=== PATIENT | female | born 2000 | race Caucasian/White ===

== ENCOUNTER 2019-07-28 03:04 | Emergency (ER) | payer OTHER ==
[2019-07-28] MEDS ORDERED: Erythromycin OPTH OINT* APPLIC OINT RIGHT EYE SCH (04:00)
--- NOTE | 2019-07-28 04:01 | ED ---
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 She notes that the swelling is pruritic, painful, and that her right eye is erythemous. She rates her pain severity a 6/ 10. No aggravating or alleviating factors noted. - History of Current Complaint Chief Complaint: EDEyeProblem Hx Obtained From: Patient Onset/Duration: Sudden Onset, Lasting Days, Lasting Weeks, Still Present Severity: Moderate - Allergies/Home Medications Allergies/Adverse Reactions: Allergies Allergy/AdvReac Type Severity Reaction Status Date / Time No Known Allergies Allergy Verified 07/28/19 03:08 Home Medications: Home Medications NK [No Home Medications Reported] 07/28/19 [History Confirmed 07/28/19] PMH/Surg Hx/FS Hx/Imm Hx Sensory History: Denies: Hx Legally Blind, Hx Deafness Opthamlomology History: Denies: Hx Legally Blind EENT History: Denies: Hx Deafness - Surgical History Surgical History: None Surgery Procedure, Year, and Place: none Infectious Disease History: No Infectious Disease History: Reports: Traveled Outside the [place] in Last 30 Days - Family History Known Family History: Negative: Renal Disease - Social History Alcohol Use: None Substance Use Type: Reports: None Hx Tobacco Use: No Smoking Status (MU): Never Smoked Tobacco Review of Systems Negative: Fever Eyes: Other - pos - swelling under right eye, erythemous right eye, right eye pain All Other Systems Reviewed And Are Negative: Yes Physical Exam - Summary Physical Exam Summary: Appearance: Well-appearing, Well-nourished, lying in bed comfortably Skin: Warm, dry, no obvious rash Eyes: sclera anicteric, no conjunctival pallor, hordeolum on lower lid of right eye, no definite abscess ENT: mucous membranes moist, pharynx appears normal Neck: Supple, nontender Respiratory: Clear to auscultation, no signs of respiratory distress Cardiovascular: Normal S1, S2. No murmurs. Normal distal pulses in tibial and radial bilaterally. Abdomen: Soft, nontender, normal active bowel sounds present Musculoskeletal: Normal, Strength/ROM Intact Neurological: A&Ox3, awake and alert, mentation is normal, speech is fluent and appropriate Psychiatric: affect is normal, does not appear anxious or depressed Triage Information Reviewed: Yes Vital Signs On Initial Exam: Initial Vitals Temp Pulse Resp BP Pulse Ox 98.6 F 55 16 103/62 98 07/28/19 03:05 07/28/19 03:05 07/28/19 03:05 07/28/19 03:05 07/28/19 03:05 Vital Signs Reviewed: Yes Procedures - Sedation Patient Received Moderate/Deep Sedation with Procedure: No Diagnostics - Vital Signs Vital Signs Temp Pulse Resp BP Pulse Ox 07/28/19 03:05 98.6 F 55 16 103/62 98 - Laboratory Lab Statement: Any lab studies that have been ordered have been reviewed, and results considered in the medical decision making process. 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 She notes that the swelling is pruritic, painful, and that her right eye is erythemous. Final Dx is right eye stye. Pt will be discharged home with PCP follow up. Pt is agreeable with this plan. - Diagnoses Provider Diagnoses: Hordeolum of right lower eyelid Discharge ED - Sign-Out/Discharge Documenting (check all that apply): Patient Departure - discharge - Discharge Plan Condition: Good Disposition: HOME Patient Education Materials: Sudha (ED) Referrals: Hardy Miller MD [Medical Doctor] - Additional Instructions: These are best managed with warm compresses for 15 minutes at a time, 4 times a day, and using the antibiotic eye ointment afterwards. You should not use any eye makeup until it is healed. If it does not go away within a week or two it may have abscessed, so you would need to see an mva still operator to manage that. - Billing Disposition and Condition Condition: GOOD Disposition: Home - Attestation Statements Document Initiated by Scribe: Yes Documenting Scribe: Thaddeus Connell Provider For Whom Amilcar is Documenting (Include Credential): Bjorn Lanier MD Scribe Attestation: Thaddeus Sanchez, scribed for Bjorn Lanier MD on 07/28/19 at 0527. Scribe Documentation Reviewed: Yes Provider Attestation: The documentation as recorded by the thiagoibeThaddeus accurately reflects the service I personally performed and the decisions made by me, Bjorn Lanier MD Status of Scribe Document: Viewed
[2019-07-28 04:16] VITALS: BP 96/61
== END 2019-07-28 04:14 | disposition home or self-care (01) ==
LOC: ED 03:04
DX: H00.012 Hordeolum externum right lower eyelid (principal)
CPT/HCPCS: 99282; A9270-GY